=== PATIENT | female | born 1995 | race Two or more races ===

== ENCOUNTER 2022-03-02 20:28 | Emergency (ER) | payer OTHER ==
[~2022-03-02] VITALS: Ht 165.1 cm; Wt 74.8 kg
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
[2022-03-02 20:50] VITALS: BP 128/64
--- NOTE | 2022-03-02 21:03 | NUR ---
URINE COLLECTED AND SENT TO LAB
--- NOTE | 2022-03-02 21:08 | NUR ---
WAIVER FORM SIGNED; RADIOLOGY AWARE
[2022-03-02] MEDS ORDERED: CARI350T PO (22:22)
--- NOTE | 2022-03-02 22:30 | NUR ---
Patient discharged to home in stable condition. Written and verbal after care instructions given. Patient verbalizes understanding of instruction.
== END 2022-03-02 22:31 | disposition home or self-care (01) ==
LOC: ER 20:54
DX: S33.5XXA Sprain of ligaments of lumbar spine, initial encounter (principal); S60.221A Contusion of right hand, initial encounter; Z88.0 Allergy status to penicillin; Z60.2 Problems related to living alone; Z79.899 Other long term (current) drug therapy; V89.2XXA Person injured in unspecified motor-vehicle accident, traffic, initial encounter; Y93.89 Activity, other specified; Y92.89 Other specified places as the place of occurrence of the external cause; Y99.8 Other external cause status
CPT/HCPCS: 72110-TC; 73130-TC; 84703-TC